=== PATIENT | female | born 1965 | race Caucasian/White ===

== ENCOUNTER → 2017-10-24 | Outpatient (CLI) | payer OTHER, MEDICAID ==
[~2017-10-24] MED LIST: APAP650 PO; BACTRIM DS TAB1 EACH PO; BETAMETHASONE D50 G2 TOP; BLOOD PRESSURE MED; BUSPAR; Buspar PO; CELEXA20 MG PO; CITALOPRAM; CYCLOBENZAPRINE; DICLOFENAC SODI75 MG PO; FLEXERIL PO; HYDROCHLOROTH12.5 MG PO; HYDROCODONE-AP1 EAC6 PO; IBUPROFEN 800800 M1; IBUPROFEN 800800 M1 PO; IBUPROFEN 800800 MG PO; LISINOPRIL; LYRICA 50 MG50 MG PO; MEDROLDOSEPACK PO; MOBIC15 MG PO; NORCO 10-325 T1 EACH PO; NORCO 5-325 TA1 EACH PO; NORETHINDRONE AC5 MG PO; NORVASC5 MG PO; PARAFON FORTE500 MG PO; PROAIR HFA8.5 GM INH; PROMETHAZINE V473 ML PO; ROBAXIN500 MG PO; VITAMIN B-121000 MCG PO; VITAMIN D400 UNIT PO; ZPAK PO
== END ==
LOC: M.CT 10:38
DX: J06.9 Acute upper respiratory infection, unspecified (principal); K76.0 Fatty (change of) liver, not elsewhere classified

== ENCOUNTER → 2018-05-31 | Outpatient (CLI) | payer OTHER, MEDICAID | LOC: M.MRI 17:21 | DX: M54.31 Sciatica, right side (principal); M54.32 Sciatica, left side; M54.16 Radiculopathy, lumbar region; G89.29 Other chronic pain; M25.552 Pain in left hip; M47.896 Other spondylosis, lumbar region; I10 Essential (primary) hypertension; F32.9 Major depressive disorder, single episode, unspecified ==

== ENCOUNTER 2018-06-16 14:37 | Emergency (ER) | payer OTHER, MEDICAID ==
[~2018-06-16] VITALS: Ht 157.5 cm; Wt 77.1 kg
[2018-06-16 15:46] VITALS: BP 129/86
== END 2018-06-16 15:47 | disposition home or self-care (01) ==
LOC: M.ERS 14:37
DX: S63.652A Sprain of metacarpophalangeal joint of right middle finger, initial encounter (principal); I10 Essential (primary) hypertension; F41.9 Anxiety disorder, unspecified; F32.9 Major depressive disorder, single episode, unspecified; F17.210 Nicotine dependence, cigarettes, uncomplicated; Z88.8 Allergy status to other drugs, medicaments and biological substances; Z88.1 Allergy status to other antibiotic agents; X50.9XXA Other and unspecified overexertion or strenuous movements or postures, initial encounter; Y93.72 Activity, wrestling; Y92.89 Other specified places as the place of occurrence of the external cause; Y99.8 Other external cause status

== ENCOUNTER → 2018-11-26 | Outpatient (CLI) | payer OTHER, MEDICAID ==
[2018-11-26 08:03] LABS: POTASSIUM 3.7 mmol/L (3.5-5.1)
== END ==
LOC: M.LAB 07:37
PROVIDERS: Student in an Organized Health Care Education/Training Program
DX: E11.9 Type 2 diabetes mellitus without complications (principal)

== ENCOUNTER 2019-09-27 06:58 | Emergency (ER) | payer OTHER, MEDICAID ==
[~2019-09-27] VITALS: Ht 157.5 cm; Wt 68.0 kg
[2019-09-27] MEDS ORDERED: CLEOCIN HCL300 MG PO (07:21)
[2019-09-27] MEDS ORDERED: PERCOCET 5-3251 EACH PO (07:21)
[2019-09-27 07:32] VITALS: BP 142/93
== END 2019-09-27 07:34 | disposition home or self-care (01) ==
LOC: M.ERS 06:58
DX: K08.89 Other specified disorders of teeth and supporting structures (principal); F41.9 Anxiety disorder, unspecified; F32.9 Major depressive disorder, single episode, unspecified; I10 Essential (primary) hypertension; F17.210 Nicotine dependence, cigarettes, uncomplicated; Z88.1 Allergy status to other antibiotic agents; Z88.8 Allergy status to other drugs, medicaments and biological substances

== ENCOUNTER 2020-06-05 19:29 | Emergency (ER) | payer OTHER, MEDICAID ==
[~2020-06-05] VITALS: Ht 157.5 cm; Wt 72.6 kg
[~2020-06-05 19:29] MED LIST changes: +CLEOCIN HCL300 MG PO; +PERCOCET 5-3251 EACH PO
[2020-06-05 23:36] VITALS: BP 129/91
== END 2020-06-05 23:37 | disposition home or self-care (01) ==
LOC: M.ERS 19:29
DX: S61.212A Laceration without foreign body of right middle finger without damage to nail, initial encounter (principal); I10 Essential (primary) hypertension; F17.210 Nicotine dependence, cigarettes, uncomplicated; Z88.8 Allergy status to other drugs, medicaments and biological substances; W26.8XXA Contact with other sharp object(s), not elsewhere classified, initial encounter; Y93.89 Activity, other specified; Y92.89 Other specified places as the place of occurrence of the external cause; Y99.8 Other external cause status